=== PATIENT | female | born 1955 | race Caucasian/White ===

== ENCOUNTER 2023-03-09 13:15 | Outpatient (AMB) | payer BC, SELFPAY ==
[2023-03-09 13:16] VITALS: BP 178/100; PULSE 106; BMI 32.6
--- NOTE | 2023-03-09 13:16 | MHC.PC.OV ---
Vital Signs 03/09/23 13:16 03/09/23 13:46 Height 5 ft 7 in Weight 208 lb 4 oz BMI 32.6 BP 178/100 H 165/90 H Blood Pressure Location Lt brachial Lt brachial Position Sitting Sitting Pulse 106 H Pulse Source Palpation Intake Visit Reasons: est care from [facility] Consultant Required: No Accompanied by: Self / Same As Patient Allergies ciprofloxacin [From CIPRO] Adverse Reaction (Intermediate, Verified 03/09/23 13:27) N/V/GI PAIN Medication List - Last Reconciled 03/09/23 by Luisa Martin MD No Known Home Meds Tobacco use date assessed: 03/09/23 Fall risk assessment: No Falls in past year Last assessed Fall Risk: 03/09/23 Dental Screening Dental Screen Date: 03/09/23 Did you have a dental visit in the last 12 months?: Yes Did you have a dental problem in the last 6 months where you did not have access to dental care?: No Was dental information given to patient?: Patient has dentist HPI HPI Comments History of Present Illness Details This is a 67-year-old female with hypertension, pure hypercholesterolemia, moderate recurrent major depression and anxiety that comes today to establish care. Blood pressure is elevated and I will start her on losartan. Blood pressure goal is equal or less than 130/80. Blood pressure will be recheck in 3 weeks by nurse navigator. Last cholesterol was elevated and lipid panel will be repeated. Advised to follow a low-cholesterol diet. Has moderate recurrent major depression with no suicidal thoughts and anxiety and is asking for oral medication. She was on Prozac about 5 years ago. I will start her on sertraline. No chest pain or shortness of breath. FORMERLY [facility], [facility]–1983 Surgical History (Updated 03/09/23 @ 13:33 by Luisa Martin MD) Hx laparoscopic cholecystectomy Family History Father No problems noted. Mother Diabetes mellitus Social History (Updated 03/09/23 @ 13:34 by Luisa Martin MD) Housing: Apartment Alcohol intake: current Alcohol intake frequency: a few times a month Alcohol type: wine Patient Tobacco Use Status: Current everyday Tobacco user Cigarette Packs Per Day: 1 Cigarettes Per Day: 20 Years Smoked: 30 e-Cigarette/Vaping Use: Never Used service: No Current occupational status: retired Cognitive needs: No Hearing needs: No Vision needs: Yes Questionnaire PHQ-9 Over the last 2 weeks, how often have you been bothered by any of the following problems? 1. Little interest or pleasure in doing things: nearly every day 2. Feeling down, depressed, or hopeless: nearly every day 3. Trouble falling or staying asleep, or sleeping too much: nearly every day 4. Feeling tired or having little energy: nearly every day 5. Poor appetite or overeating: nearly every day 6. Feeling bad about yourself - or that you are a failure or have let yourself or your family down: nearly every day 7. Trouble concentrating on things, such as reading the newspaper or watching television: more than half the days 8. Moving or speaking so slowly that other people could have noticed. Or the opposite - being so fidgety or restless that you have been moving around a lot more than usual: several days 9. Thoughts that you would be better off or of hurting yourself in some way: several days Total score: 22 Depression Screening Interpretation: Positive Depression Screening Follow-up: Existing condition and New Medication prescribed Depression Screening Done: Yes 89028 - PHQ-9 Billing: Yes Source: Developed by Drs. Alli West, Mary Brown, Thompson Helm and colleagues, with an educational nikos from [employer]. Thrive Questionnaire Date Thrive assessed: 03/09/23 I am a: Patient What is your living situation today?: I have a steady place to live Within the past 12 months, did the food you bought not last and you didn't have the money to get more?: Never true Within the past 12 months, did you worry whether your food would run out before you got money to buy more?: Never true Do you have trouble paying for medicines?: No Do you have trouble getting transportation to medical appointments?: No Do you have trouble paying your heating and electricity bill?: No Do you have trouble taking care of your child, family member or friend?: No Do you have trouble with day-to-day activities such as bathing, preparing meals, shopping, managing finances, etc.?: No Are you currently unemployed and looking for a job?: No Are you interested in more education?: No Please select the resources that you would like help with: None Currently or been in a relationship where the following occur: no concerns reported AUDIT C Alcohol Use Questionnaire (AUDIT-C) 1. How often do you have a drink containing alcohol?: Monthly or less 2. How many drinks containing alcohol do you have on a typical day when you are drinking?: 1 or 2 3. How often do you have six or more drinks on one occasion?: Never Total Score: 1 BRAD-7 AMB Questionnaire BRAD-7 Date BRAD - 7 assessed: 03/09/23 Feeling nervous, anxious, or on edge: 3 = Nearly every day Not being able to stop or control worryin = Nearly every day Worrying too much about different things: 3 = Nearly every day Trouble relaxin = Nearly every day Being so restless that it is hard to sit still: 3 = Nearly every day Becoming easily annoyed or irritable: 3 = Nearly every day Feeling afraid as if something awful might happen: 3 = Nearly every day Total BRAD-7 score (0-4 normal; 5-9 mild; 10-14 moderate; 15-21 severe): 21 Source: Developed by Drs. Alli West, Mary Brown, Thompson Helm and colleagues, with an educational nikos from [employer]. BRAD-7 Assessment Billing BRAD-7 Assessment Tool: BRAD-7 Assessment 90133 Review of Systems Const All systems reviewed & are unremarkable except as noted in HPI and below Eyes Reports no additional complaints, Denies change in vision and Denies other visual disturbances Card Denies chest pain at rest, Denies chest pain with activity, Denies edema, Denies irregular heart rhythm, Denies claudication, Denies dyspnea, Denies dyspnea on exertion, Denies orthopnea, Denies paroxysmal nocturnal dyspnea and Denies slow heart rate Resp Denies cough, Denies dyspnea and Denies dyspnea on exertion GI Denies abdominal pain, Denies change in bowel habits, Denies excessive flatus, Denies nausea and Denies vomiting Denies urinary incontinence, Denies urinary hesitancy and Denies urinary urgency Musc Denies abnormal gait, Denies atrophy, Denies deformity and Denies limited range of motion Skin/Breast Denies bleeding lesions, Denies changing lesions and Denies rash Neuro Denies abnormal gait, Denies behavioral changes and Denies lack of coordination Psych Denies behavioral changes Physical exam (Primary Care) Vital Signs: Last Vital Signs Pulse 106 H 03/09/23 13:16 BP 178/100 H 03/09/23 13:16 BMI result Body Mass Index 32.6 Tobacco/Smoking Status: Tobacco use Status Tobacco use date assessed 03/09/23 03/09/23 13:23 Patient Tobacco Use Status Current everyday Tobacco 03/09/23 13:23 e-Cigarette/Vaping Use Never Used 03/09/23 13:23 PHQ-9: PHQ-9 Score PHQ-9: Total score 22 03/09/23 13:23 Depression Screening Interpretation: Positive Depression Screening Follow-up: Existing condition and New Medication prescribed Thrive Assessment: Date of Thrive Assessment Date Thrive assessed 03/09/23 03/09/23 13:23 Currently or been in a relationship where the following occur: no concerns reported Eyes General: appearance normal, both eyes and all related structures Eyelids: Yes eyelids normal Conjunctivae: conjunctivae normal Neck Neck: Yes normal visual inspection and Yes supple Resp Effort & Inspection: normal respiratory effort Auscultation: clear to auscultation bilaterally Cardio Jugular venous distension: no JVD Rate: regular rate Rhythm: regular rhythm Heart sounds: S1 normal heart sound present and S2 normal heart sound present Extrem General: Yes full ROM Psych Appearance: grossly normal Affect: Sad affect present Assessment and Plan Assessment & Plan (1) Essential hypertension: Code(s): I10 - Essential (primary) hypertension Plan: Start losartan. Recheck blood pressure with nurse navigator in 3 weeks. Blood pressure goal is equal or less than 130/80. (2) Pure hypercholesterolemia: Code(s): E78.00 - Pure hypercholesterolemia, unspecified Plan: Start low-cholesterol diet. Repeat lipid panel. (3) Moderate recurrent major depression: Code(s): F33.1 - Major depressive disorder, recurrent, moderate Plan: Start sertraline. (4) BRAD (generalized anxiety disorder): Code(s): F41.1 - Generalized anxiety disorder Plan: Start sertraline. Orders: Orders Lipid Panel Today E78.5 - Hyperlipidemia, unspecified Comprehensive [place]. Panel Fast Today I10 - Essential (primary) hypertension ECG 12 lead EKG Today I10 - Essential (primary) hypertension Medications: New losartan 25 mg PO DAILY 90 days 90 tabs 1RF I10 - Essential (primary) hypertension sertraline 25 mg PO DAILY 90 days 90 tabs 0RF F33.1 - Major depressive disorder, recurrent, moderate, F41.1 - Generalized anxiety disorder nicotine 1 patch transdermal DAILY 28 days 28 ea 0RF Coding Level of Care Code Est Pt Level 4 (11315) Diagnoses Essential hypertension I10 Pure hypercholesterolemia E78.00 Moderate recurrent major depression F33.1 BRAD (generalized anxiety disorder) F41.1 Additional Codes BRAD-7 Assessment Billing - BRAD-7 Assessment Tool: BRAD-7 Assessment 48961 ([id number]) Time Spent (min) 22
[2023-03-09 13:46] VITALS: BP 165/90
== END 2023-03-09 13:40 | disposition home or self-care (01) ==
PROVIDERS: PCP Hospitalist; Visit Provider Internal Medicine
DX: I10 Essential (primary) hypertension (principal); E78.00 Pure hypercholesterolemia, unspecified; F33.1 Major depressive disorder, recurrent, moderate; F41.1 Generalized anxiety disorder
CPT/HCPCS: 96127; 99214

== ENCOUNTER → 2023-03-18 10:58 | Outpatient (REF) | payer MEDICARE, SELFPAY ==
--- NOTE | 2023-03-18 11:09 | ECG_ITS ---
Test Reason : htn Blood Pressure : / mmHG Vent. Rate : 117 BPM Atrial Rate : 117 BPM P-R Int : 174 ms QRS Dur : 076 ms QT Int : 310 ms P-R-T Axes : 058 021 063 degrees QTc Int : 432 ms Sinus tachycardia Possible Left atrial enlargement Borderline ECG When compared with ECG of 04-DEC-2017 11:38, No significant change was found Referred By: Luisa Martin Electronically Signed By:GA OLIVARES MD
== END ==
LOC: HO.CARD 10:58
PROVIDERS: PCP Internal Medicine; Visit Provider Internal Medicine
DX: I10 Essential (primary) hypertension (principal)
CPT/HCPCS: 93005

== ENCOUNTER → 2023-03-18 11:09 | Outpatient (BNV) | payer MEDICARE, SELFPAY | PROVIDERS: PCP Internal Medicine; Visit Provider Internal Medicine Cardiovascular Disease | DX: I10 Essential (primary) hypertension (principal); R00.0 Tachycardia, unspecified | CPT/HCPCS: 93010 ==

== ENCOUNTER 2023-03-19 09:10 | Outpatient (REF) | payer MEDICARE, SELFPAY ==
[2023-03-19 11:11] LABS: Alanine Aminotransferase 14 U/L (0-31); Albumin Level 4.2 g/dL (3.5-5.0); Alkaline Phosphatase 75 U/L (39-117); Anion Gap 13 (12-20); Aspartate Amino Transferase 18 U/L (5-31); Bilirubin Total 0.6 mg/dL (0.0-1.0); Blood Urea Nitrogen 6 mg/dL (9-16); Calcium 9.7 mg/dL (8.4-10.2); Carbon Dioxide 25 mmol/L (22-29); Chloride 98 mmol/L (96-108); Cholesterol 258 mg/dL (<200); Estimated Glomerular Filt Rate > 60; Glucose Fasting 87 mg/dL (60-99); HDL Cholesterol 43 mg/dL (>40); LDL Cholesterol Calculated 191 mg/dL (<100); Potassium 3.7 mmol/L (3.3-5.1); Sodium 132 mmol/L (135-145); Total Protein 7.2 g/dL (6.5-8.0); Triglycerides 120 mg/dL (<150)
== END 2023-03-19 09:11 | disposition home or self-care (01) ==
LOC: HO.LAB 09:10
PROVIDERS: PCP Internal Medicine; Visit Provider Internal Medicine
DX: E78.5 Hyperlipidemia, unspecified (principal); I10 Essential (primary) hypertension
CPT/HCPCS: 36415; 80053; 80061

== ENCOUNTER 2023-03-25 12:21 | Outpatient (AMB) | payer BC, SELFPAY ==
[2023-03-25 12:22] VITALS: BP 162/98; PULSE 117; O2SAT 97; BMI 31.9
--- NOTE | 2023-03-25 12:22 | MHC.PC.OV ---
Vital Signs 03/25/23 12:22 Height 5 ft 7 in Weight 204 lb BMI 31.9 BP 162/98 H Blood Pressure Location Lt brachial Position Sitting Pulse 117 H Pulse Source Pulse Oximeter Pulse Oximetry (%) 97 Oxygen Delivery Method Room Air Intake Visit Reasons: cataract surgery 04/06 & 04/20 Intake Note: Patient here for pre-op cataract surgery 04/06 and 04/20 Tetryl Dissolver Operator Required: No Accompanied by: Self / Same As Patient Allergies ciprofloxacin [From CIPRO] Adverse Reaction (Intermediate, Verified 03/25/23 12:25) N/V/GI PAIN sertraline Adverse Reaction (Intermediate, Verified 03/25/23 12:35) loopiness Medication List - Last Reconciled 03/25/23 by Luisa Martin MD atorvastatin 10 mg PO BEDTIME 90 days losartan 25 mg PO DAILY 90 days nicotine 1 patch transdermal DAILY 28 days Tobacco use date assessed: 03/09/23 Fall risk assessment: No Falls in past year Last assessed Fall Risk: 03/25/23 Dental Screening Dental Screen Date: 03/25/23 Did you have a dental visit in the last 12 months?: Yes Did you have a dental problem in the last 6 months where you did not have access to dental care?: No Was dental information given to patient?: Patient has dentist HPI HPI Comments History of Present Illness Details This is a 67-year-old female with hypertension, pure hypercholesterolemia, moderate recurrent major depression and anxiety that comes today for preop evaluation for cataract extraction and intraocular lens implant scheduled for April 06 and April 22. EKG was done show no significant abnormality. Blood pressure elevated and I will increase losartan to 50 mg. Cholesterol elevated and I advised her to be compliant with statins. Try sertraline but felt loopy and depression with anxiety has been on remission. No chest pain or shortness of breath. She is still a smoker and was advised to quit. By [facility] she has 0.4% of cardiac risk complication. This is a low risk surgery and she has a medium risk patient. Patient is medically clear for cataract extraction and intra-ocular lens implant. [facility] Surgical History Hx laparoscopic cholecystectomy Family History Father No problems noted. Mother Diabetes mellitus Social History Housing: Apartment Alcohol intake: current Alcohol intake frequency: a few times a month Alcohol type: wine Patient Tobacco Use Status: Current everyday Tobacco user Cigarette Packs Per Day: 1 Cigarettes Per Day: 20 Years Smoked: 30 e-Cigarette/Vaping Use: Never Used service: No Current occupational status: retired Cognitive needs: No Hearing needs: No Vision needs: Yes Questionnaire Thrive Questionnaire Date Thrive assessed: 03/09/23 BRAD-7 AMB Questionnaire BRAD-7 Date BRAD - 7 assessed: 03/09/23 Source: Developed by Drs. Alli West, Mary Brown, Thompson Helm and colleagues, with an educational nikos from [employer]. Review of Systems Const All systems reviewed & are unremarkable except as noted in HPI and below Eyes Reports no additional complaints, Denies change in vision and Denies other visual disturbances Card Denies chest pain at rest, Denies chest pain with activity, Denies edema, Denies irregular heart rhythm, Denies claudication, Denies dyspnea, Denies dyspnea on exertion, Denies orthopnea, Denies paroxysmal nocturnal dyspnea and Denies slow heart rate Resp Denies cough, Denies dyspnea and Denies dyspnea on exertion GI Denies abdominal pain, Denies change in bowel habits, Denies excessive flatus, Denies nausea and Denies vomiting Denies urinary incontinence, Denies urinary hesitancy and Denies urinary urgency Musc Denies abnormal gait, Denies atrophy, Denies deformity and Denies limited range of motion Skin/Breast Denies bleeding lesions, Denies changing lesions and Denies rash Neuro Denies abnormal gait, Denies behavioral changes, Denies confusion and Denies lack of coordination Psych Denies behavioral changes and Denies confusion Physical exam (Primary Care) Vital Signs: Last Vital Signs Pulse 117 H 03/25/23 12:22 BP 162/98 H 03/25/23 12:22 Pulse Ox 97 03/25/23 12:22 Oxygen Delivery Method Room Air 03/25/23 12:22 BMI result Body Mass Index 31.9 Tobacco/Smoking Status: Tobacco use Status Tobacco use date assessed 03/09/23 03/25/23 12:29 Patient Tobacco Use Status Current everyday Tobacco 03/25/23 12:29 e-Cigarette/Vaping Use Never Used 03/25/23 12:29 Thrive Assessment: Date of Thrive Assessment Date Thrive assessed 03/09/23 03/25/23 12:29 Const General: No confusion Orientation/consciousness: patient oriented x3 and No confusion Neck Neck: Yes normal visual inspection and Yes supple Resp Effort & Inspection: normal respiratory effort Auscultation: clear to auscultation bilaterally Cardio Jugular venous distension: no JVD Rate: regular rate Rhythm: regular rhythm Heart sounds: S1 normal heart sound present and S2 normal heart sound present Neuro General: patient oriented x3, no focal motor deficits and No confusion Extrem General: Yes full ROM Assessment and Plan Assessment & Plan (1) Pre-op evaluation: Code(s): Z01.818 - Encounter for other preprocedural examination Plan: Patient is medically clear for surgery. (2) Essential hypertension: Code(s): I10 - Essential (primary) hypertension Plan: Increase losartan to 50 mg. Blood pressure goal is equal or less than 130/80. (3) Moderate recurrent major depression: Code(s): F33.1 - Major depressive disorder, recurrent, moderate Plan: In remission. (4) Pure hypercholesterolemia: Code(s): E78.00 - Pure hypercholesterolemia, unspecified Plan: Be compliant with statin. Medications: New losartan 50 mg PO DAILY 90 days 90 tabs 1RF I10 - Essential (primary) hypertension Discontinued losartan Discontinued Reason: Patient Completed Course 25 mg PO DAILY 90 days 90 tabs 1RF I10 - Essential (primary) hypertension Coding Level of Care Code Est Pt Level 4 (44840) Diagnoses Pre-op evaluation Z01.818 Essential hypertension I10 Moderate recurrent major depression F33.1 Pure hypercholesterolemia E78.00 Time Spent (min) 22
== END 2023-03-25 12:44 | disposition home or self-care (01) ==
PROVIDERS: PCP Hospitalist; Visit Provider Internal Medicine
DX: Z01.818 Encounter for other preprocedural examination (principal); I10 Essential (primary) hypertension; F33.1 Major depressive disorder, recurrent, moderate; E78.00 Pure hypercholesterolemia, unspecified
CPT/HCPCS: 99214

== ENCOUNTER 2023-04-06 08:55 | Day surgery (SDC) | payer MEDICARE, SELFPAY ==
[2023-04-02 09:49] VITALS: BMI 31.9
--- NOTE | 2023-04-03 08:11 | MHC.SHP ---
Pre-Procedural Eval Section A Date of Service: 04/03/23 The patient is an INPATIENT: No Changes since office visit: No Cold of Flu in the past 2 weeks, No New Medical Problems, No Changes in Medication and No Patient answered all questions The History & Physical has been completed within 30 days and I have reviewed it.: Yes Section B Chief Complaint: Age-related nuclear cataract, right eye Allergies: Allergies Allergy/AdvReac Type Severity Reaction Status Date / Time ciprofloxacin [From CIPRO] AdvReac Intermediate N/V/GI PAIN Verified 03/25/23 12:25 sertraline AdvReac Intermediate loopiness Verified 03/25/23 12:35 Plan Diagnosis/Plan: Unchanged I have reviewed the history and physical and performed a pertinent physical examination on my patient. No changes have occurred unless specified. Time Spent With Patient Time: Total time managing care of this patient today ____ minutes.
--- NOTE | 2023-04-03 09:50 | HO.ANESPROP2 ---
Documented by User: Jennifer Sebastian NP 04/03/23 09:50 HPI - Anesthesia Eval Consult details Narrative: 67yo F for Right Cataract Multifocal with IOL Insertion Medically cleared No previous cataract on record PMFSH Active Problems Active Problems: All Active Problems (Updated 04/01/23 @ 09:42 by India Alves RN) Pre-op evaluation (Acute) Hyponatremia (Acute) Pure hypercholesterolemia (Acute) Moderate recurrent major depression (Acute) Essential hypertension (Acute) BRAD (generalized anxiety disorder) (Acute) Left ear impacted cerumen (Acute) Past Medical History Medical History Depression Anxiety Elevated cholesterol HTN (hypertension) Family History Family History Father No problems noted. Mother Diabetes mellitus Surgical History Surgical History H/O colonoscopy Hx laparoscopic cholecystectomy Social History Social History Housing: Apartment Are you a primary direct care staffer to a significant other at home: No Do you presently have visiting nurse or other home services: No Alcohol intake: current Alcohol intake frequency: a few times a month Alcohol type: wine Patient Tobacco Use Status: Current everyday Tobacco user Tobacco use type: Cigarette Cigarette Packs Per Day: 0.25 Cigarettes Per Day: 5.0 Years Smoked: 30 e-Cigarette/Vaping Use: Never Used Use of substances other than those prescribed or required for medical reasons: No Have you been hit, kicked, punched, or otherwise hurt by someone within the past year? If so, by whom?: No Are you DNR?: No Advance Directives: No Advance Directives Information Provided: Yes Advance Directives on File: No Recently lost weight without trying: No Eating poorly because of decreased appetite: No Nutrition Risks: No Nutritional Risk Poor oral hygiene: No (upper partial & lower full denture) service: No Current occupational status: retired Cognitive needs: No Hearing needs: No Vision needs: Yes Meds Allergies Allergy/AdvReac Type Severity Reaction Status Date / Time ciprofloxacin [From CIPRO] AdvReac Intermediate N/V/GI PAIN Verified 03/25/23 12:25 sertraline AdvReac Intermediate loopiness Verified 03/25/23 12:35 Exam Height,Weight and Vital Signs: Height 5 ft 7 in Weight 92.533 kg Assessment and Plan Assessment Anesthesia Assessment: Chart Reviewed Documented by User: Abbey Everett MD 04/06/23 10:10 PMFSH Past Medical History Medical History Depression Anxiety Elevated cholesterol HTN (hypertension) Family History Family History Father No problems noted. Mother Diabetes mellitus Family history of problems with anesthesia: No Surgical History Surgical History H/O colonoscopy Hx laparoscopic cholecystectomy History of Problems with Anesthesia: No Social History Social History Housing: Apartment Are you a primary direct care staffer to a significant other at home: No Do you presently have visiting nurse or other home services: No Alcohol intake: current Alcohol intake frequency: a few times a month Alcohol type: wine Patient Tobacco Use Status: Current everyday Tobacco user Tobacco use type: Cigarette Cigarette Packs Per Day: 0.25 Cigarettes Per Day: 5.0 Years Smoked: 30 e-Cigarette/Vaping Use: Never Used Use of substances other than those prescribed or required for medical reasons: No Have you been hit, kicked, punched, or otherwise hurt by someone within the past year? If so, by whom?: No Are you DNR?: No Advance Directives: No Advance Directives Information Provided: Yes Advance Directives on File: No Recently lost weight without trying: No Eating poorly because of decreased appetite: No Nutrition Risks: No Nutritional Risk Poor oral hygiene: No (upper partial & lower full denture) service: No Current occupational status: retired Cognitive needs: No Hearing needs: No Vision needs: Yes Meds Allergies Allergy/AdvReac Type Severity Reaction Status Date / Time ciprofloxacin [From CIPRO] AdvReac Intermediate N/V/GI PAIN Verified 03/25/23 12:25 sertraline AdvReac Intermediate loopiness Verified 03/25/23 12:35 Exam Airway Mallampati Class: II TM Dist: >3cm Neck ROM: Full Heart: rrr Lungs: cta Assessment and Plan Assessment Anesthesia Assessment: Anesthesia Plan Discussed Final Anesthetic Review Family History of Problems with Anesthesia: No History of Problems with Anesthesia: No NPO: Yes ASA Class: III Final Preanesthetic Review: No Changes in Pt Med Stat, Meds/Allgs Chart Reviewed, Consent Obtained/Reviewed and Anes Risks/Benef Reviewed Patient Risk: Low Procedure Risk: Low Anesthetic Plan Anesthetic Plan: MAC: Disposition: Standard PACU
[2023-04-06 10:05] VITALS: BMI 31.9
[2023-04-06 10:16] VITALS: BP 160/79; PULSE 95; RESP 18; TEMP 36.9; O2SAT 97
--- NOTE | 2023-04-06 11:46 | HO.PNOPHT ---
Ophthalmology Procedure Procedure Date of Service: 04/06/23 Ophthalmology Viscoelastic: Maddie Katt Dual Pack Pro Ophthalmology Lenses: TECCYRUS [id number] (10) Procedure Notes: PREOPERATIVE DIAGNOSIS: Decreased visual acuity right eye secondary to cataract POSTOPERATIVE DIAGNOSIS: Same PROCEDURE: Right cataract extraction with intraocular lens insertion SURGEON: Zachariah Shaw M.D. ANESTHESIA: Topical/MAC ESTIMATED BLOOD LOSS: None COMPLICATIONS: None After obtaining informed consent, the patient was brought to the operating room suite and placed in the supine position. After adequate sedation per anesthesia, topical drops of Tetracaine were given to the right eye. The eye was then prepped and draped in the usual sterile fashion. The operating room microscope was then positioned over the operative eye and a lid speculum placed. A paracentesis was created. Viscoelastic was then instilled into the anterior chamber. A three plane incision was then created temporally, utilizing a 2.85 mm keratome. Capsulotomy forceps were then utilized to create a circular tear capsulotomy. Hydrodissection and hydrodelineation were carried out until adequate mobilization of the nucleus occurred. Phacoemulsification was then utilized to remove the dense central nucleus followed by removal of the cortical material utilizing the automated aspiration irrigation unit. Viscoelastic was instilled into the posterior capsular bag followed by placement of a posterior chamber intraocular lens without difficulty. The residual Viscoelastic was then removed utilizing the automated IA machine. The wound was checked and found to be watertight. The patient tolerated the procedure well and the lid speculum was removed. Intracameral injection of Vigamox 0.1 mL followed by a subtenon injection of Kenalog-40 0.2 mL were administered. The patient will be seen in the a.m.
[2023-04-06 12:14] VITALS: BP 144/96; PULSE 89; RESP 16; TEMP 36.6; O2SAT 96
== END 2023-04-06 12:24 | disposition home or self-care (01) ==
PROVIDERS: PCP Internal Medicine; Visit Provider Ophthalmology
PROC: (CPT 66985; principal; 2023-04-06 11:20)
DX: H25.11 Age-related nuclear cataract, right eye (principal); H18.413 Arcus senilis, bilateral; H52.13 Myopia, bilateral; I10 Essential (primary) hypertension; E78.00 Pure hypercholesterolemia, unspecified; F32.A Depression, unspecified; F41.1 Generalized anxiety disorder; Z79.899 Other long term (current) drug therapy; Z88.1 Allergy status to other antibiotic agents; Z88.8 Allergy status to other drugs, medicaments and biological substances; Z90.49 Acquired absence of other specified parts of digestive tract; F17.210 Nicotine dependence, cigarettes, uncomplicated
CPT/HCPCS: 66984; J2250; J3301; V2632

== ENCOUNTER 2023-04-20 10:29 | Day surgery (SDC) | payer MEDICARE, SELFPAY ==
[2023-04-02 09:54] VITALS: BMI 31.9
--- NOTE | 2023-04-16 12:11 | P.CONAN_ITS ---
Documented by User: Jennifer Sebastian NP 04/16/23 12:17 HPI - Anesthesia Eval Consult details Narrative: 67yo F for Left Cataract Extraction IOL Insertion Medically cleared Right eye 04/06/23: Midaz 2 PMFSH Active Problems Active Problems: All Active Problems (Updated 04/01/23 @ 09:42 by India Alves RN) Pre-op evaluation (Acute) Hyponatremia (Acute) Pure hypercholesterolemia (Acute) Moderate recurrent major depression (Acute) Essential hypertension (Acute) BRAD (generalized anxiety disorder) (Acute) Left ear impacted cerumen (Acute) Past Medical History Medical History Depression Anxiety Elevated cholesterol HTN (hypertension) Family History Family History Father No problems noted. Mother Diabetes mellitus Family history of problems with anesthesia: No Surgical History Surgical History H/O colonoscopy Hx laparoscopic cholecystectomy History of Problems with Anesthesia: No Social History Social History Housing: Apartment Are you a primary director critical care to a significant other at home: No Do you presently have visiting nurse or other home services: No Alcohol intake: current Alcohol intake frequency: a few times a month Alcohol type: wine Patient Tobacco Use Status: Current everyday Tobacco user Tobacco use type: Cigarette Cigarette Packs Per Day: 0.25 Cigarettes Per Day: 5.0 Years Smoked: 30 e-Cigarette/Vaping Use: Never Used Use of substances other than those prescribed or required for medical reasons: No Have you been hit, kicked, punched, or otherwise hurt by someone within the past year? If so, by whom?: No Are you DNR?: No Advance Directives: No Advance Directives Information Provided: Yes Advance Directives on File: No Recently lost weight without trying: No Eating poorly because of decreased appetite: No Nutrition Risks: No Nutritional Risk Poor oral hygiene: No (upper partial & lower full denture) service: No Current occupational status: retired Cognitive needs: No Hearing needs: No Vision needs: Yes Meds Allergies Allergy/AdvReac Type Severity Reaction Status Date / Time ciprofloxacin [From CIPRO] AdvReac Intermediate N/V/GI PAIN Verified 03/25/23 12:25 sertraline AdvReac Intermediate loopiness Verified 03/25/23 12:35 Exam Height,Weight and Vital Signs: Height 5 ft 7 in Weight 92.533 kg Assessment and Plan Assessment Anesthesia Assessment: Chart Reviewed Final Anesthetic Review Family History of Problems with Anesthesia: No History of Problems with Anesthesia: No Documented by User: Sukhdev Garner MD 04/20/23 13:38 [facility] Past Medical History Medical History Depression Anxiety Elevated cholesterol HTN (hypertension) Family History Family History Father No problems noted. Mother Diabetes mellitus Surgical History Surgical History H/O colonoscopy Hx laparoscopic cholecystectomy Social History Social History Housing: Apartment Are you a primary director critical care to a significant other at home: No Do you presently have visiting nurse or other home services: No Alcohol intake: current Alcohol intake frequency: a few times a month Alcohol type: wine Patient Tobacco Use Status: Current everyday Tobacco user Tobacco use type: Cigarette Cigarette Packs Per Day: 0.25 Cigarettes Per Day: 5.0 Years Smoked: 30 e-Cigarette/Vaping Use: Never Used Use of substances other than those prescribed or required for medical reasons: No Have you been hit, kicked, punched, or otherwise hurt by someone within the past year? If so, by whom?: No Are you DNR?: No Advance Directives: No Advance Directives Information Provided: Yes Advance Directives on File: No Recently lost weight without trying: No Eating poorly because of decreased appetite: No Nutrition Risks: No Nutritional Risk Poor oral hygiene: No (upper partial & lower full denture) service: No Current occupational status: retired Cognitive needs: No Hearing needs: No Vision needs: Yes Meds Allergies Allergy/AdvReac Type Severity Reaction Status Date / Time ciprofloxacin [From CIPRO] AdvReac Intermediate N/V/GI PAIN Verified 03/25/23 12:25 sertraline AdvReac Intermediate loopiness Verified 03/25/23 12:35 Exam Airway Mallampati Class: II TM Dist: >3cm Neck ROM: Full Loose/Missing/Broken Teeth: Yes Heart: [id number] Lungs: cta b/l Assessment and Plan Assessment Anesthesia Assessment: Anesthesia Plan Discussed Final Anesthetic Review NPO: Yes ASA Class: III Final Preanesthetic Review: No Changes in Pt Med Stat, Meds/Allgs Chart Reviewed, Consent Obtained/Reviewed and Anes Risks/Benef Reviewed Patient Risk: Intermediate Procedure Risk: Low Assessment/Block/Sedation in SS: Assess/Block/Sedation-SS Anesthetic Plan Anesthetic Plan: MAC: Disposition: Standard PACU
--- NOTE | 2023-04-17 08:38 | MHC.SHP ---
Pre-Procedural Eval Section A Date of Service: 04/17/23 The patient is an INPATIENT: No Changes since office visit: No Cold of Flu in the past 2 weeks, No New Medical Problems, No Changes in Medication and No Patient answered all questions The History & Physical has been completed within 30 days and I have reviewed it.: Yes Section B Chief Complaint: Age-related nuclear cataract, left eye Allergies: Allergies Allergy/AdvReac Type Severity Reaction Status Date / Time ciprofloxacin [From CIPRO] AdvReac Intermediate N/V/GI PAIN Verified 03/25/23 12:25 sertraline AdvReac Intermediate loopiness Verified 03/25/23 12:35 Plan Diagnosis/Plan: Unchanged I have reviewed the history and physical and performed a pertinent physical examination on my patient. No changes have occurred unless specified. Time Spent With Patient Time: Total time managing care of this patient today ____ minutes.
[2023-04-20 13:24] VITALS: BMI 32.9
[2023-04-20 13:37] VITALS: BP 170/79; PULSE 68; RESP 16; TEMP 36.8; O2SAT 98
[2023-04-20] MEDS: Tetracaine HCl/PF 0.5% Oph Sol 4 ML DROPS 1 DROP EYE-LEFT (13:39)
[2023-04-20] MEDS: Cyclopentolate 1 % Ophth Sol 2 ML DRPBTL 1 DROP EYE-LEFT ×3 (13:44→13:56)
[2023-04-20] MEDS: Tropicamide 1 % Ophth Sol 3 ML BTL 1 DROP EYE-LEFT ×3 (13:45→13:57)
[2023-04-20] MEDS: Ketorolac Tromethamine 0.5% Op 5 ML DROPS 1 DROP EYE-LEFT ×3 (13:46→13:59)
[2023-04-20] MEDS: Phenylephrine HCL 2.5% Oph SoL 2 ML BOTTLE 1 DROP EYE-LEFT ×3 (13:48→14:00)
[2023-04-20] MEDS: Lactated Ringers 500 ML 50 ML IV (13:57)
--- NOTE | 2023-04-20 14:50 | MHC.SHP ---
Pre-Procedural Eval Section A Date of Service: 04/20/23 The patient is an INPATIENT: No Changes since office visit: No Cold of Flu in the past 2 weeks, No New Medical Problems, No Changes in Medication and No Patient answered all questions The History & Physical has been completed within 30 days and I have reviewed it.: Yes Section B Chief Complaint: Age-related nuclear cataract, left eye Allergies: Allergies Allergy/AdvReac Type Severity Reaction Status Date / Time ciprofloxacin [From CIPRO] AdvReac Intermediate N/V/GI PAIN Verified 04/20/23 14:03 sertraline AdvReac Intermediate loopiness Verified 04/20/23 14:03 Plan Diagnosis/Plan: Unchanged I have reviewed the history and physical and performed a pertinent physical examination on my patient. No changes have occurred unless specified. Time Spent With Patient Time: Total time managing care of this patient today ____ minutes.
--- NOTE | 2023-04-20 14:51 | HO.PNOPHT ---
Ophthalmology Procedure Procedure Date of Service: 04/20/23 Ophthalmology Viscoelastic: Healon Duet Dual Pack Pro Ophthalmology Lenses: SENSAR AR40 (9) Procedure Notes: PREOPERATIVE DIAGNOSIS: Decreased visual acuity left eye secondary to cataract POSTOPERATIVE DIAGNOSIS: Same PROCEDURE: Left cataract extraction with intraocular lens insertion SURGEON: Zachariah Shaw M.D. ANESTHESIA: Topical/MAC ESTIMATED BLOOD LOSS: None COMPLICATIONS: None After obtaining informed consent, the patient was brought to the operation room suite and placed in the supine position. After adequate sedation per anesthesia, topical drops of Tetracaine were given to the left eye. The eye was then prepped and draped in the usual sterile fashion. The operating room microscope was then positioned over the operative eye and a lid speculum placed. A paracentesis was created. Viscoelastic was then instilled into the anterior chamber. A three plane incision was then created temporally, utilizing a 2.85 mm keratome. Capsulotomy forceps were then utilized to create a circular tear capsulotomy. Hydrodissection and hydrodelineation were carried out until adequate mobilization of the nucleus occurred. Phacoemulsification was then utilized to remove the dense central nucleus followed by removal of the cortical material utilizing the automated aspiration irrigation unit. Viscoat elastic was instilled into the posterior capsular bag followed by placement of a posterior chamber intraocular lens without difficulty. The residual Viscoat elastic was then removed utilizing the automated IA machine. The wound was check and found to be watertight. The patient tolerated the procedure well and the lid speculum was removed. Intracameral injection of Vigamox 0.1 mL followed by a subtenon injection of Kenalog-40 0.2 mL were administered. The patient will be seen in the a.m.
[2023-04-20 15:20] VITALS: BP 164/88; PULSE 74; RESP 16; TEMP 36.1; O2SAT 100
[2023-04-20 15:25] VITALS: BP 176/98; PULSE 73; RESP 20; TEMP 36.4; O2SAT 100
== END 2023-04-20 15:43 | disposition home or self-care (01) ==
PROVIDERS: PCP Internal Medicine; Visit Provider Ophthalmology
PROC: (CPT 66985; principal; 2023-04-20 13:20)
DX: H25.12 Age-related nuclear cataract, left eye (principal); H54.7 Unspecified visual loss; H52.13 Myopia, bilateral; H18.413 Arcus senilis, bilateral; I10 Essential (primary) hypertension; E78.00 Pure hypercholesterolemia, unspecified; F33.1 Major depressive disorder, recurrent, moderate; Z79.899 Other long term (current) drug therapy; Z88.1 Allergy status to other antibiotic agents; Z88.8 Allergy status to other drugs, medicaments and biological substances; F17.210 Nicotine dependence, cigarettes, uncomplicated
CPT/HCPCS: 66984; J2250; J3010; J3301; V2632

== ENCOUNTER 2024-08-08 07:56 | Outpatient (REF) | payer MEDICARE, SELFPAY ==
[2024-08-08 13:05] VITALS: BP 191/88; PULSE 76; RESP 16; TEMP 36.9; O2SAT 95; BMI 29.8
== END 2024-08-08 07:57 | disposition home or self-care (01) ==
LOC: HO.MS 07:56
PROVIDERS: PCP Internal Medicine; Visit Provider Ophthalmology
PROC: (CPT 66821; principal; 2024-08-08 11:30)
DX: H26.491 Other secondary cataract, right eye (principal)
CPT/HCPCS: 66821